=== PATIENT | female | born 1960 | race Caucasian/White ===

== ENCOUNTER 2017-09-17 18:57 | Emergency (ER) | payer MEDICARE ==
[~2017-09-17 18:57] MED LIST: ASPI-516 CHEW; LISI2.5T3 PO; METF1000 PO; SIMV40TA PO; TRAM50TA PO
[2017-09-17 19:09] VITALS: BP 164/74; PULSE 91; RESP 12; TEMP 99.3; O2SAT 99
[2017-09-17 19:13] VITALS: BP 164/74; PULSE 90; RESP 12; TEMP 99.3; O2SAT 94
[2017-09-17] MEDS ORDERED: IBUPROFEN 600 MG TAB PO ONE (19:30)
[2017-09-17] MEDS ORDERED: DIAZEPAM 5 MG TAB PO ONE (19:30)
[2017-09-17] MEDS ORDERED: LITH300T PO (19:33)
[2017-09-17] MEDS ORDERED: CHLO25TA38 PO (19:33)
--- NOTE | 2017-09-17 19:45 | PD ---
HPI Chief Complaint: Respiratory Symptoms Time Seen by Provider: 19:18 Travel History International Travel<30 days: No Contact w/Intl Traveler<30days: No Traveled to known affect area: No History of Present Illness HPI 57yo F with PMH of DM here with chest wall soreness for 1 week. Said she has been having flu like symptoms which has improved. Pt has been coughing today. Said the soreness is constant, nonradiating and worst with palpation. Associated with some sob. Denies any fever, n/v, abdominal pain, focal weakness or numbness. Pt also with bilateral lower back pain that feels sore. Denies any trauma, urinary or fecal incontinence or radiating down legs. PFSH Past Medical History Anemia: Yes Anxiety: Yes Cancer: No Cardiovascular Problems: No High Cholesterol: Yes Diabetes: Yes Patient Takes Glucophage: No Diminished Hearing: No Endocrine: No Genitourinary: No Hepatitis: No Hiatal Hernia: No Hypertension: Yes Immune Disorder: No Musculoskeletal: Yes (arthritis of the neck and back) Neurologic: No Psychiatric: Yes (schizophrenia) Reproductive: Yes (fibroid) Respiratory: No Thyroid Disease: No Tetanus Vaccination: Unknown Influenza Vaccination: Yes ?: Not Dilation and Curettage (D&C): Yes Past Surgical History AICD: No Hysterectomy: Yes Joint Replacement: No Oral Surgery: Yes (repair of a cleft palate) Pacemaker: No Thoracic Surgery: Yes (left breast biopsy which was benign) Other Surgery: Yes (CLEFT LIP REPAIR, L BREAST BIOPSY, DEVIATED SEPTUM REPAIR) Social History Alcohol Use: No Tobacco Use: No Substance Use: No Allergies-Medications (Allergen,Severity, Reaction): Coded Allergies: levofloxacin (Verified Allergy, Severe, SEVERE RASH, 09/17/17) Reported Meds & Prescriptions Reported Meds & Active Scripts Active Tramadol (Tramadol HCl) 50 Mg Tab 50 Mg PO Q12HR PRN Lisinopril 2.5 Mg Tab 2.5 Mg PO DAILY Metformin (Metformin HCl) 1,000 Mg Tab 1,000 Mg PO BIDPC With meals Aspirin 81 Mg Chew 81 Mg CHEW DAILY Simvastatin 40 Mg Tab 40 Mg PO HS Reported [place] Carbonate ER ([place] Carbonate) 300 Mg Tab 300 Mg PO HS Chlorpromazine (Chlorpromazine HCl) 25 Mg Tab 25 Mg PO HS PRN Review of Systems Except as stated in HPI: all other systems reviewed are Neg Physical Exam Narrative GENERAL: 57yo F not in distress. SKIN: Focused skin assessment warm/dry. HEAD: Atraumatic. Normocephalic. EYES: Pupils equal and round. No scleral icterus. No injection or drainage. CARDIOVASCULAR: Regular rate and rhythm. No murmur appreciated. RESPIRATORY: No accessory muscle use. Clear to auscultation. Breath sounds equal bilaterally. GASTROINTESTINAL: Abdomen soft, non-tender, nondistended. MUSCULOSKELETAL: No obvious deformities. No clubbing. No cyanosis. No edema. NEUROLOGICAL: Awake and alert. No obvious cranial nerve deficits. Motor grossly within normal limits. Normal speech. PSYCHIATRIC: Appropriate mood and affect; insight and judgment normal. Data Data Last Documented VS Vital Signs Date Time Temp Pulse Resp B/P (MAP) Pulse Ox O2 Delivery O2 Flow Rate FiO2 09/17/17 19:19 Room Air 09/17/17 19:13 99.3 90 12 164/74 (104) 94 Orders Orders Electrocardiogram (09/17/17 19:28) Basic Metabolic Panel (Bmp) (09/17/17 19:28) Complete Blood Count With Diff (09/17/17 19:28) Magnesium (Mg) (09/17/17 19:28) Prothrombin Time / Inr (Pt) (09/17/17 19:28) Act Partial Throm Time (Ptt) (09/17/17 19:28) Troponin I (09/17/17 19:28) Chest, Single Ap (09/17/17 19:28) Ibuprofen (Motrin) (09/17/17 19:30) Diazepam (Valium) (09/17/17 19:30) Guaifen-Cod 200-20 Mg/10ml Liq (Robituss (09/17/17 20:45) Labs Laboratory Tests Test 09/17/17 19:40 White Blood Count 7.4 TH/MM3 Red Blood Count 4.98 MIL/MM3 Hemoglobin 13.6 GM/DL Hematocrit 42.2 % Mean Corpuscular Volume 84.8 FL Mean Corpuscular Hemoglobin 27.3 PG Mean Corpuscular Hemoglobin Concent 32.2 % Red Cell Distribution Width 12.5 % Platelet Count 417 TH/MM3 Mean Platelet Volume 8.0 FL Neutrophils (%) (Auto) 69.8 % Lymphocytes (%) (Auto) 22.5 % Monocytes (%) (Auto) 5.0 % Eosinophils (%) (Auto) 1.7 % Basophils (%) (Auto) 1.0 % Neutrophils # (Auto) 5.1 TH/MM3 Lymphocytes # (Auto) 1.7 TH/MM3 Monocytes # (Auto) 0.4 TH/MM3 Eosinophils # (Auto) 0.1 TH/MM3 Basophils # (Auto) 0.1 TH/MM3 CBC Comment DIFF FINAL Differential Comment Prothrombin Time 9.8 SEC Prothromb Time International Ratio 1.0 RATIO Activated Partial Thromboplast Time 26.0 SEC Blood Urea Nitrogen 11 MG/DL Creatinine 0.76 MG/DL Random Glucose 258 MG/DL Calcium Level 8.8 MG/DL Magnesium Level 2.1 MG/DL Sodium Level 137 MEQ/L Potassium Level 3.6 MEQ/L Chloride Level 104 MEQ/L Carbon Dioxide Level 26.9 MEQ/L Anion Gap 6 MEQ/L Estimat Glomerular Filtration Rate 79 ML/MIN Troponin I LESS THAN 0.02 NG/ML MDM Medical Decision Making Medical Screen Exam Complete: Yes Emergency Medical Condition: Yes Interpretation(s) EKG: NSR 83bpm. Normal axis. No ST segment elevation or depression. Differential Diagnosis Musculoskeletal pain vs. pneumonia vs. ACS Narrative Course 57yo F with DM here with atypical chest pain for 1 week. Labs reviewed, no leukocytosis. H/H normal. Glucose elevated at 258. Normal anion gap. CXR negative. Pain seem very musculoskeletal. Pt given robitussin, ibuprofen and valium. Reevaluated at bedside and said pain has resolved. Pt feels great and wants to go home. Do not think this is cardiac but did offer observation in chest pain center. Pt does not want to stay and said she will follow up with PMD tomorrow. Return precautions given. Diagnosis Primary Impression: Chest pain, atypical Patient Instructions: General Instructions Departure Forms: Tests/Procedures Additional Instructions: Please follow up with your primary care physician in 1-2 days. Return to the ED if symptoms worsen. Med/Other Pt SpecificInfo: No Change to Meds Disposition: 01 DISCHARGE HOME Condition: Stable Deena Lebron Sep 17, 2017 19:45
[2017-09-17 19:58] LABS: AUTOMATED NEUTROPHIL # 5.1 TH/MM3 (1.8-7.7); BASOPHIL # 0.1 TH/MM3 (0-0.2); EOSINOPHIL # 0.1 TH/MM3 (0-0.4); EOSINOPHIL % 1.7 % (0.0-4.0); HEMATOCRIT 42.2 % (35.0-46.0); HEMOGLOBIN 13.6 GM/DL (11.6-15.3); LYMPH % 22.5 % (9.0-44.0); LYMPHOCYTE # 1.7 TH/MM3 (1.0-4.8); MEAN CELL VOLUME 84.8 FL (80.0-100.0); MEAN CORPUSCULAR HEMOGLOBIN 27.3 PG (27.0-34.0); MEAN CORPUSCULAR HGB CONC 32.2 % (32.0-36.0); MONOCYTE # 0.4 TH/MM3 (0-0.9); NEUT % 69.8 % (16.0-70.0); PLATELET COUNT 417 TH/MM3 (150-450); RED BLOOD COUNT 4.98 MIL/MM3 (4.00-5.30); RED CELL DISTRIBUTION WIDTH 12.5 % (11.6-17.2); WHITE BLOOD COUNT 7.4 TH/MM3 (4.0-11.0)
--- NOTE | 2017-09-17 20:04 | RADRPT ---
EXAM DATE/TIME: 09/17/2017 19:43 [facility] COMPARISON: CHEST SINGLE AP, August 29, 2014, 17:28. INDICATIONS : Cough. MEDICAL HISTORY : Hypertension. SURGICAL HISTORY : None. ENCOUNTER: Initial ACUITY: 1 day PAIN SCORE: 0/10 LOCATION: Bilateral chest FINDINGS: A single view of the chest demonstrates the lungs to be symmetrically aerated without evidence of mas s, infiltrate or effusion. The cardiomediastinal contours are unremarkable. Osseous structures are intact. CONCLUSION: No acute disease. No significant change has occurred. Jay Powers MD on September 17, 2017 at 20:01 Board Certified Radiologist. This report was verified electronically.
[2017-09-17 20:20] LABS: CHLORIDE 104 MEQ/L (98-107); SODIUM (NA) 137 MEQ/L (136-145)
[2017-09-17 20:23] LABS: BICARBONATE 26.9 MEQ/L (21.0-32.0); CALCIUM 8.8 MG/DL (8.5-10.1); GLUCOSE,RANDOM 258 MG/DL (74-106); MAGNESIUM 2.1 MG/DL (1.5-2.5)
[2017-09-17 20:24] LABS: BLOOD UREA NITROGEN 11 MG/DL (7-18)
[2017-09-17 20:27] LABS: CREATININE 0.76 MG/DL (0.50-1.00); GLOMERULAR FILTRATION RATE 79 ML/MIN (>89)
[2017-09-17 20:32] LABS: TROPONIN I LESS THAN 0.02 NG/ML (0.02-0.05)
[2017-09-17] MEDS ORDERED: guaiFENesin/CODEINE SYRUP 200 MG/20 MG/10 ML CUP PO ONE (20:45)
[2017-09-17 20:46] LABS: PROTHROMBIN TIME - PATIENT 9.8 SEC (9.8-11.6)
[2017-09-17 21:32] VITALS: BP 159/74; TEMP 98.7
--- NOTE | 2017-09-18 15:57 | EKG ---
Date Performed: 09/17/2017 Time Performed: 20:01:27 PTAGE: 57 years EKG: Sinus rhythm NORMAL ECG Since the prior tracing, there has been no significant change PREVIOUS TRACING : 05/11/2015 15.36 DOCTOR: Nivia Healy Interpretating Date/Time 09/18/2017 15:56:14
== END 2017-09-17 22:01 | disposition home or self-care (01) ==
LOC: PHED 18:57
DX: R07.89 Other chest pain (principal); E78.00 Pure hypercholesterolemia, unspecified; I10 Essential (primary) hypertension; F20.9 Schizophrenia, unspecified; E11.9 Type 2 diabetes mellitus without complications; M47.9 Spondylosis, unspecified; Z79.82 Long term (current) use of aspirin; Z79.84 Long term (current) use of oral hypoglycemic drugs; Z79.899 Other long term (current) drug therapy
CPT/HCPCS: 71045; 80048; 83735; 84484; 85025; 85610; 85730; 93005; 99285